=== PATIENT | male | born 1990 | race Caucasian/White ===

== ENCOUNTER 2019-09-16 15:23 | Emergency (ER) | payer SELFPAY ==
[~2019-09-16] VITALS: Ht 162.6 cm; Wt 69.4 kg
[2019-09-16 15:26] VITALS: BP 128/74; Ht 162.6 cm; Wt 69.4 kg
== END 2019-09-16 15:56 | disposition home or self-care (01) ==
LOC: ED 15:23
DX: S01.112D Laceration without foreign body of left eyelid and periocular area, subsequent encounter (principal); X58.XXXD Exposure to other specified factors, subsequent encounter

== ENCOUNTER 2019-09-24 14:51 | Emergency (ER) | payer SELFPAY ==
[~2019-09-24] VITALS: Ht 162.6 cm; Wt 71.2 kg
[2019-09-24 15:11] VITALS: Ht 162.6 cm; Wt 71.2 kg
[2019-09-24 16:16] VITALS: BP 145/74
== END 2019-09-24 16:17 | disposition home or self-care (01) ==
LOC: ED 14:51
DX: S01.112D Laceration without foreign body of left eyelid and periocular area, subsequent encounter (principal); G47.63 Sleep related bruxism; M26.69 Other specified disorders of temporomandibular joint; X58.XXXD Exposure to other specified factors, subsequent encounter